=== PATIENT | male | born 1990 | race African-American/Black ===

== ENCOUNTER 2016-12-27 22:05 | Emergency (ER) | payer SELFPAY ==
[~2016-12-27] VITALS: Ht 175.3 cm; Wt 73.5 kg
[~2016-12-27 22:05] MED LIST: AUGMENTIN 875-1 EAC1 ORAL; AZITHROMYCIN250 MG ORAL; IBUPROFEN600 MG ORAL; LACTULOSE20 GM/301 ORAL; NKM; NORCO 5-325 TA1 EACH ORAL; ONDANSETRON ODT4 MG ORAL
[2016-12-27 22:23] VITALS: BP 123/80
[2016-12-27] MEDS ORDERED: IBUPROFEN600 MG ORAL (22:36)
[2016-12-27] MEDS ORDERED: AMOXICILLIN500 MG ORAL (22:36)
[2016-12-27 22:42] VITALS: BP 123/80
--- NOTE | 2016-12-27 22:48 | Emergency Room Report ---
History of Present Illness General Chief Complaint: Toothache Source: Patient Present Illness HPI Patient presents with complaints of left-sided dental pain Reports the pain started 2 days ago Patient reports putting Orajel on the area with minimal relief Denies any fevers denies any trismus He does report left-sided throat pain as well however Denies any rash Pain is reported as 7/10 Allergies: Coded Allergies: No Known Allergies (Unverified , 06/01/13) Patient History Past Medical History: see triage record Pertinent Family History: none Reviewed Nursing Documentation: PMH: Agreed, PSxH: Agreed Nursing Documentation-PMH Past Medical History: No Stated History Review of Systems All Other Systems: negative except mentioned in HPI Physical Exam Vital Signs Date Time Temp Pulse Resp B/P (MAP) Pulse Ox O2 Delivery O2 Flow Rate FiO2 12/27/16 22:13 97.9 59 16 123/80 99 Room Air Sp02 EP Interpretation: reviewed, normal General Appearance: well appearing, no apparent distress Head: normocephalic, atraumatic Eyes: bilateral eye PERRL, bilateral eye EOMI ENT: other - Poor dentition with what appears to be dental decay throughout there are some specific areas in the left molar region, Neck: supple, thyroid normal Respiratory: lungs clear Musculoskeletal: normal inspection Skin: normal color, no rash - no abscess Lymphatic: no adenopathy Medical Decision Making Diagnostic Impression: Primary Impression: dental decay ER Course Patient's oral exam reveals clear dental decay patient requiring oral antibiotic And dental followup And concern regarding the patient's request of pain medication, review of cures reveals recent opiate prescription the patient failed to provide us this information and concern regarding opiate seeking behavior , Last Vital Signs Date Time Temp Pulse Resp B/P (MAP) Pulse Ox O2 Delivery O2 Flow Rate FiO2 12/27/16 22:23 97.9 16 123/80 99 Room Air 12/27/16 22:13 59 Status: improved Disposition: HOME, SELF-CARE Condition: Improved Scripts Ibuprofen* (MOTRIN*) 600 Mg Tablet 600 MG ORAL Q8H Y for For Pain, #20 TAB 0 Refills Prov: LIDYA MCDANIEL.ORoly 12/27/16 Amoxicillin* (AMOXIL*) 500 Mg Capsule 500 MG ORAL THREE TIMES A DAY, #21 CAP Prov: LIDYA MCDANIEL.ORoly 12/27/16 Patient Instructions: Dental Pain, Dental Caries, [id number] Additional Instructions: Patient is provided with the discharge instructions notified to follow up with primary doctor in the next 2-3 days otherwise return to the er with any worsening symptoms. Please note that this report is being documented using DRAGON technology. This can lead to erroneous entry secondary to incorrect interpretation by the dictating instrument. LIDYA MCDANIEL D.O. Dec 27, 2016 22:48
== END 2016-12-27 22:45 | disposition home or self-care (01) ==
LOC: EMR 22:25
DX: K02.9 Dental caries, unspecified (principal)
CPT/HCPCS: 99284

== ENCOUNTER 2017-08-07 20:21 | Emergency (ER) | payer MEDICAID ==
[~2017-08-07] VITALS: Ht 175.3 cm; Wt 72.6 kg
[~2017-08-07 20:21] MED LIST changes: +AMOXICILLIN500 MG ORAL
[2017-08-07] MEDS ORDERED: AZITHROMYCIN250 MG ORAL (21:19)
[2017-08-07] MEDS ORDERED: IBUPROFEN600 MG ORAL (21:19)
--- NOTE | 2017-08-07 21:20 | Emergency Room Report ---
History of Present Illness General Chief Complaint: Sore Throat Source: Patient Present Illness HPI Is a 26-year-old male with no past medical history. He presents with chief complaint is sore throat. Onset yesterday. No nausea no vomiting. Subjective fever. Worse with swallowing and eating. Worse with coughing. Slight cough without production. Pain is 9 out of 10. No drooling. Allergies: Coded Allergies: No Known Allergies (Unverified , 06/01/13) Patient History Past Medical History: see triage record, old chart reviewed Past Surgical History: none Pertinent Family History: none Social History: Reports: smoking Immunizations: other Reviewed Nursing Documentation: PMH: Agreed; PSxH: Agreed Nursing Documentation-PMH Past Medical History: No Stated History Review of Systems Constitutional: Reports: weakness Eye: Denies: eye pain, blurred vision ENT: Reports: throat pain; Denies: ear pain, nose congestion, throat swelling Respiratory: Denies: cough, shortness of breath Cardiovascular: Denies: chest pain, palpitations Gastrointestinal: Denies: abdominal pain, diarrhea, nausea, vomiting Musculoskeletal: Denies: back pain, joint pain Skin: Denies: rash Neurological: Denies: headache, numbness Endocrine: Denies: increased thirst, increased urine Hematologic/Lymphatic: Denies: easy bruising All Other Systems: negative except mentioned in HPI Physical Exam Vital Signs Date Time Temp Pulse Resp B/P (MAP) Pulse Ox O2 Delivery O2 Flow Rate FiO2 08/07/17 20:32 98.1 54 16 110/55 96 Room Air 98.1 vitals normal Sp02 EP Interpretation: reviewed, normal General Appearance: well appearing, no apparent distress, alert Head: normocephalic, atraumatic Eyes: bilateral eye PERRL, bilateral eye EOMI ENT: hearing grossly normal, tonsillar swelling, pharyngeal erythema, other - no trismus Neck: full range of motion, supple, no meningismus Respiratory: chest non-tender, lungs clear, normal breath sounds Cardiovascular #1: regular rate, rhythm, no murmur Gastrointestinal: normal bowel sounds, non tender, no mass, no organomegaly, no bruit, non-distended Musculoskeletal: back normal, gait/station normal, normal range of motion Psychiatric: mood/affect normal Skin: warm/dry Medical Decision Making Diagnostic Impression: Primary Impression: Pharyngitis, acute Qualified Codes: J02.9 - Acute pharyngitis, unspecified ER Course Patient with a pharyngitis. No evidence of peritonsillar abscess, retropharyngeal abscess or Royal angina. We'll discharge home. Last Vital Signs Date Time Temp Pulse Resp B/P (MAP) Pulse Ox O2 Delivery O2 Flow Rate FiO2 08/07/17 20:32 98.1 54 16 110/55 96 Room Air 98.1 Status: unchanged Disposition: HOME, SELF-CARE Condition: Stable Scripts Azithromycin* (ZITHROMAX*) 250 Mg Tablet 250 MG ORAL DAILY, #6 TAB 0 Refills Take two tablets by mouth today, then take one tablet by mouth daily for four days Prov: MARCELLA NORTON M.D. 08/07/17 Ibuprofen* (MOTRIN*) 600 Mg Tablet 600 MG ORAL THREE TIMES A DAY, #30 TAB 0 Refills Prov: MARCELLA NORTON M.D. 08/07/17 Referrals: NOT CHOSEN [facility]/,REFERRING (PCP) Patient Instructions: Tonsillitis Additional Instructions: Increase fluids. Salt water gargle. Follow with your doctor in 7 days. Return if worse. MARCELLA NORTON M.D. Aug 07, 2017 21:20
[2017-08-07 21:30] VITALS: BP 110/55
== END 2017-08-07 21:34 | disposition home or self-care (01) ==
LOC: EMR 21:09
DX: J02.9 Acute pharyngitis, unspecified (principal)
CPT/HCPCS: 99284

== ENCOUNTER 2017-10-20 07:43 | Emergency (ER) | payer MEDICAID ==
[~2017-10-20] VITALS: Ht 175.3 cm; Wt 67.1 kg
[2017-10-20] MEDS ORDERED: NKM (07:51)
[2017-10-20] MEDS ORDERED: Ketorolac 30mg Inj IM ONE (08:15)
[2017-10-20] MEDS ORDERED: ACETAMINOPHEN-1 EAC1 ORAL (08:21)
[2017-10-20] MEDS ORDERED: AMOXICILLIN500 MG ORAL (08:21)
[2017-10-20 08:39] VITALS: BP 117/77
[2017-10-20 08:42] VITALS: BP 117/77
--- NOTE | 2017-10-20 10:16 | Emergency Room Report ---
History of Present Illness General Chief Complaint: Toothache Source: Patient Present Illness HPI 27-year-old male presents ED complaining of tooth pain. Notes pain to bilateral lower jaw. Started 3 days ago. States he thinks his wisdom teeth are coming in. Pain is throbbing, 9 out of 10, radiating through the jaw. Denies fevers or chills. Denies sore throat or cough. Denies any discharge. No other aggravating relieving factors. Denies any other associated symptoms Allergies: Coded Allergies: No Known Allergies (Unverified , 06/01/13) Patient History Past Medical History: none Past Surgical History: none Pertinent Family History: none Social History: Denies: smoking, alcohol use, drug use Immunizations: UTD Reviewed Nursing Documentation: PMH: Agreed; PSxH: Agreed Nursing Documentation-PMH Past Medical History: No Stated History Review of Systems All Other Systems: negative except mentioned in HPI Physical Exam Vital Signs Date Time Temp Pulse Resp B/P (MAP) Pulse Ox O2 Delivery O2 Flow Rate FiO2 10/20/17 07:46 97.7 54 16 117/77 95 Room Air 97.7 Sp02 EP Interpretation: reviewed, normal General Appearance: no apparent distress, alert, GCS 15, non-toxic Head: normocephalic Eyes: bilateral eye normal inspection, bilateral eye PERRL ENT: hearing grossly normal, normal pharynx, no angioedema, normal voice, TMs + canals normal, other - multiple dental caries. pain at site of wisdom teeth. no abscess Neck: full range of motion, no meningismus, no bony tend, supple/symm/no masses Respiratory: normal inspection Cardiovascular #1: normal peripheral pulses Gastrointestinal: normal inspection Rectal: deferred Genitourinary: no CVA tenderness Musculoskeletal: normal inspection Neurologic: alert, oriented x3, responsive, motor strength/tone normal, sensory intact, speech normal Psychiatric: normal inspection Skin: normal inspection Lymphatic: normal inspection Medical Decision Making Diagnostic Impression: Primary Impression: Tooth pain ER Course 27-year-old male presents ED complaining of tooth pain. Cracked tooth, dental abscess, cavity Patient placed on stretcher. After initial history, physical exam reveals a young male in mild distress. Multiple dental caries noted. However there does appear to be pain at site of wisdom tooth in bilateral lower jaw. No surrounding abscess. No induration or swelling. Given Toradol in ED. We will prescribe antibiotics and pain medications. Recommend patient see dentist soon Diagnosis- tooth pain Stable and discharged to home prescription for Tylenol #3 and amoxicillin. Instructed to see dentist as a walk-in this week. Return to ED if symptoms recur or worse Last Vital Signs Date Time Temp Pulse Resp B/P (MAP) Pulse Ox O2 Delivery O2 Flow Rate FiO2 10/20/17 08:42 97.7 72 16 117/77 95 Room Air 97.7 Status: improved Disposition: HOME, SELF-CARE Condition: Stable Scripts Acetaminophen With Codeine (T#3) (TYLENOL #3 TAB*) Y Tab 1 TAB ORAL Q8H PRN for For Pain, #20 TAB Prov: Ray Gonzalez MD 10/20/17 Amoxicillin* (AMOXIL*) 500 Mg Capsule 500 MG ORAL THREE TIMES A DAY, #21 CAP Prov: Ray Gonzalez MD 10/20/17 Patient Instructions: Pericoronitis Ray Gonzalez MD Oct 20, 2017 10:16
== END 2017-10-20 08:43 | disposition home or self-care (01) ==
LOC: EMR 08:19
DX: K08.89 Other specified disorders of teeth and supporting structures (principal); R68.84 Jaw pain
CPT/HCPCS: 96372; 99284; J1885

== ENCOUNTER 2017-11-19 15:36 | Emergency (ER) | payer MEDICAID ==
[~2017-11-19] VITALS: Ht 177.8 cm; Wt 68.0 kg
[~2017-11-19 15:36] MED LIST changes: +ACETAMINOPHEN-1 EAC1 ORAL
[2017-11-19 16:00] VITALS: BP 131/82
[2017-11-19] MEDS ORDERED: Ketorolac 60mg Inj IM ONE (16:30)
[2017-11-19] MEDS ORDERED: Lidocaine 2% Visc 15ml soln ORAL ONE (16:30)
--- NOTE | 2017-11-19 16:30 | Emergency Room Report ---
History of Present Illness General Chief Complaint: Toothache Source: Patient Present Illness HPI 27-year-old male presents to the emergency department complaining of 8/10 in severity left lower wisdom tooth pain 2 days. Patient reports that he has a cracked tooth and he needs to get it pulled by a dentist. Patient states that since his last visit 20 days ago he was evaluated by a dentist however they did not schedule his tooth to be pulled. He states his pain started yesterday and she was just on his way to the dentist for pain when his mother told him he should go to the ER instead. Denies fevers or chills reports moderate tenderness at the gumline. Denies swelling of the lips or tongue or sore throat. Allergies: Coded Allergies: No Known Allergies (Unverified , 06/01/13) Patient History Past Medical History: see triage record Past Surgical History: none Pertinent Family History: none Reviewed Nursing Documentation: PMH: Agreed; PSxH: Agreed Nursing Documentation-PMH Past Medical History: No Stated History Review of Systems All Other Systems: negative except mentioned in HPI Physical Exam Vital Signs Date Time Temp Pulse Resp B/P (MAP) Pulse Ox O2 Delivery O2 Flow Rate FiO2 11/19/17 15:57 98.0 64 18 131/82 98 Room Air 98.1 Sp02 EP Interpretation: reviewed, normal General Appearance: no apparent distress, alert, GCS 15, non-toxic Head: normocephalic, atraumatic Eyes: bilateral eye normal inspection, bilateral eye PERRL ENT: hearing grossly normal, normal voice, other - the left wisdom tooth. tooth is cracked ttp to gumline as well no palpable fluctuance. Neck: full range of motion Respiratory: lungs clear, speaking full sentences Cardiovascular #1: regular rate, rhythm Musculoskeletal: back normal, gait/station normal, normal range of motion, non- tender Neurologic: alert, oriented x3, responsive, motor strength/tone normal, sensory intact, speech normal, grossly normal Psychiatric: judgement/insight normal Skin: normal color, no rash, warm/dry, well hydrated Lymphatic: no adenopathy Medical Decision Making Diagnostic Impression: Primary Impression: Acute pericoronitis ER Course 27-year-old male presents to the emergency department complaining of 8/10 in severity left lower wisdom tooth pain 2 days. Patient reports that he has a cracked tooth and he needs to get it pulled by a dentist. Patient states that since his last visit 20 days ago he was evaluated by a dentist however they did not schedule his tooth to be pulled. He states his pain started yesterday and she was just on his way to the dentist for pain when his mother told him he should go to the ER instead. Denies fevers or chills reports moderate tenderness at the gumline. Denies swelling of the lips or tongue or sore throat. Ddx considered but are not limited to cellulitis, dental abscess, orbital cellulitis, d/l tooth, dental pain. trigeminal neuralgia Vital signs: are WNL, pt. is afebrile H&PE are most consistent with acute pericoronitis of the left wisdom tooth. tooth is cracked ttp to gumline as well no palpable fluctuance. ORDERS: none required at this time, the diagnosis is clinical ED INTERVENTIONS: -Toradol IM DISCHARGE: At this time pt. is stable for d/c to home. Will provide printed patient care instructions, and any necessary prescriptions. Care plan and follow up instructions have been discussed with the patient prior to discharge. Last Vital Signs Date Time Temp Pulse Resp B/P (MAP) Pulse Ox O2 Delivery O2 Flow Rate FiO2 11/19/17 15:57 98.0 64 18 131/82 98 Room Air 98.1 Disposition: HOME, SELF-CARE Condition: Stable Scripts Ibuprofen* (MOTRIN*) 600 Mg Tablet 600 MG ORAL THREE TIMES A DAY, #30 TAB 0 Refills Prov: Dayna Rodríguez 11/19/17 Amoxicillin* (AMOXIL*) 500 Mg Capsule 500 MG ORAL BID for 7 Days, #14 CAP Prov: Dayna Rodríguez 11/19/17 Lidocaine HCl 2% Viscous (Lidocaine HCl 2% Viscous) 100 Ml Solution 5 ML MM QID, #100 ML Prov: Dayna Rodríguez 11/19/17 Referrals: NOT CHOSEN [facility]/MD,REFERRING (PCP) Patient Instructions: Dental Pain Additional Instructions: Take medications as directed. Follow up with a DENTIST within 3-5 days, even if your symptoms have resolved. --Please review list of primary care clinics, if you do not already have a primary care provider - Please note that this Emergency Department Report was dictated using [employer] transcriptionist technology software, occasionally this can lead to erroneous entry secondary to interpretation by the dictation equipment. Dayna Rodríguez Nov 19, 2017 16:30
[2017-11-19] MEDS ORDERED: LIDOCAINE VISC100 ML MM (16:31)
[2017-11-19] MEDS ORDERED: AMOXICILLIN500 MG ORAL (16:31)
[2017-11-19] MEDS ORDERED: IBUPROFEN600 MG ORAL (16:31)
[2017-11-19 17:15] VITALS: BP 130/80
== END 2017-11-19 17:15 | disposition home or self-care (01) ==
LOC: EMR 16:10
DX: K05.20 Aggressive periodontitis, unspecified (principal)
CPT/HCPCS: 99283

== ENCOUNTER 2018-04-01 08:48 | Emergency (ER) | payer SELFPAY ==
[~2018-04-01] VITALS: Ht 177.8 cm; Wt 70.3 kg
[~2018-04-01 08:48] MED LIST changes: +LIDOCAINE VISC100 ML MM
[2018-04-01] MEDS ORDERED: TYLENOL EXTRA500 MG ORAL (09:24)
[2018-04-01] MEDS ORDERED: CEPHALEXIN500 MG ORAL (09:24)
[2018-04-01] MEDS ORDERED: PREDNISONE20 MG ORAL (09:24)
[2018-04-01 09:30] VITALS: BP 125/70
[2018-04-01] MEDS ORDERED: Acetaminophen 500mg (ES) tab ORAL ONE (09:30)
--- NOTE | 2018-04-01 10:33 | Emergency Room Report ---
History of Present Illness General Chief Complaint: Lower Extremity Injury Source: Patient Present Illness HPI 27-year-old male presents ED complaining of right big toe pain and swelling. Patient states that there was no injury. Notes increasing pain and redness to the base of the big toe. Throbbing, 8 out of 10, nonradiating. Started about one week ago. Denies fevers chills. No other aggravating relieving factors. Denies any other associated symptoms Allergies: Coded Allergies: No Known Allergies (Unverified , 06/01/13) Patient History Past Medical History: none Past Surgical History: none Pertinent Family History: none Social History: Denies: smoking, alcohol use, drug use Immunizations: UTD Reviewed Nursing Documentation: PMH: Agreed; PSxH: Agreed Nursing Documentation-PMH Past Medical History: No Stated History Review of Systems All Other Systems: negative except mentioned in HPI Physical Exam Vital Signs Date Time Temp Pulse Resp B/P (MAP) Pulse Ox O2 Delivery O2 Flow Rate FiO2 04/01/18 08:52 98.1 80 17 127/69 99 Room Air Sp02 EP Interpretation: reviewed, normal General Appearance: no apparent distress, alert, GCS 15, non-toxic Head: normocephalic Eyes: bilateral eye normal inspection, bilateral eye PERRL ENT: normal ENT inspection Neck: normal inspection Respiratory: normal inspection Cardiovascular #1: normal inspection Gastrointestinal: normal inspection Rectal: deferred Genitourinary: no CVA tenderness Musculoskeletal: swelling - R big toe, tender Neurologic: alert, oriented x3, responsive, motor strength/tone normal, sensory intact, speech normal Psychiatric: normal inspection Skin: normal inspection Lymphatic: normal inspection Medical Decision Making Diagnostic Impression: Primary Impression: Great toe pain Qualified Codes: M79.674 - Pain in right toe(s) ER Course Hospital Course 27-year-old M presents ED with R big toe pain and swelling. Differential diagnoses include: Fracture, dislocation, sprain, contusion, bursitis, septic joint Clinical course Patient placed on stretcher. After initial history, physical exam reveals a male in no acute distress. There is swelling and erythema to the R toe. No fluctuance. Patient appears well and nontoxic. Am not suspicious of septic joint. Consideration for cellulitis versus gout. Patient is young however he documents that his father had gout. We will treat for both. Recommend all with orthopedics as outpatient given pain meds, prednisone in ED Diagnosis - great toe pain Stable and discharged to home with prescription for prednisone, tylenol, keflex. Followup with PMD/ortho. Return to ED if symptoms recur or worsen Last Vital Signs Date Time Temp Pulse Resp B/P (MAP) Pulse Ox O2 Delivery O2 Flow Rate FiO2 04/01/18 09:30 98.3 76 16 125/70 99 Room Air Status: improved Disposition: HOME, SELF-CARE Condition: Stable Scripts Cephalexin* (KEFLEX*) 500 Mg Capsule 500 MG ORAL EVERY 6 HOURS for 7 Days, CAP Prov: Ray Gonzalez MD 04/01/18 Prednisone* (PREDNISONE*) 20 Mg Tablet 40 MG ORAL DAILY, #10 TAB Prov: Ray Gonzalez MD 04/01/18 Acetaminophen* (TYLENOL EXTRA STRENGTH*) 500 Mg Tablet 500 MG ORAL Q6H PRN for Mild Pain/Temp > 100.5, #30 TAB 0 Refills Prov: Ray Gonzalez MD 04/01/18 Referrals: NOT CHOSEN [facility]/,REFERRING (PCP) Departure Forms: Return to Work Return to Work Date: Apr 03, 2018 Work Restrictions: No Prolonged Standing Patient Instructions: Gout, [id number], Cellulitis, [id number] Ray Gonzalez MD Apr 01, 2018 10:33
== END 2018-04-01 09:33 | disposition home or self-care (01) ==
LOC: EMR 09:25
DX: M79.674 Pain in right toe(s) (principal)
CPT/HCPCS: 99283; J7512

== ENCOUNTER 2018-09-24 02:35 | Emergency (ER) | payer MEDICAID ==
[~2018-09-24] VITALS: Ht 170.2 cm; Wt 72.6 kg
[~2018-09-24 02:35] MED LIST changes: +CEPHALEXIN500 MG ORAL; +PREDNISONE20 MG ORAL; +TYLENOL EXTRA500 MG ORAL
--- NOTE | 2018-09-24 02:39 | NUR ---
ED Nurse Note: unable to traige, patient not in waiting room, called 2 times
--- NOTE | 2018-09-24 02:43 | NUR ---
Not in WR.
[2018-09-24 03:00] VITALS: BP 111/71
--- NOTE | 2018-09-24 03:00 | NUR ---
ED Nurse Note: Abelardo walked into ED c/o cough for a week accompanied by a sore throat. patient rates his pain a 9/10. patient is alert and oriented x4, ambulatory with a steady gait, VSS
[2018-09-24] MEDS ORDERED: AMOXICILLIN500 MG ORAL (03:08)
[2018-09-24] MEDS ORDERED: IBUPROFEN600 MG ORAL (03:08)
[2018-09-24 03:21] VITALS: BP 120/72
--- NOTE | 2018-09-24 03:21 | NUR ---
ER DISCHARGE NOTE: Patient is cleared to be discharged per ERMD, pt is aox4, on room air, with stable vital signs. pt was given dc and prescription instructions, pt was able to verbalize understanding, pt id band removed without complications. pt is able to ambulate with steady gait. pt took all belongings.
--- NOTE | 2018-09-24 04:47 | Emergency Room Report ---
History of Present Illness General Chief Complaint: Upper Respiratory Illness Source: Patient Present Illness HPI Patient is a 27-year-old male who presented after increased sore throat and productive cough. Patient reports having a cough with yellow-green sputum. Reports having gradual onset of symptoms of the past 5 days. He reports being a smoker. He states he smokes marijuana regularly. He does not smoke cigarettes. Patient denies any vomiting or abdominal pain. He reports having some generalized body aches. He denies any prior medical history other than asthma. Allergies: Coded Allergies: No Known Allergies (Unverified , 06/01/13) Patient History Past Medical History: see triage record Reviewed Nursing Documentation: PMH: Agreed; PSxH: Agreed Nursing Documentation-PMH Past Medical History: No Stated History Review of Systems All Other Systems: negative except mentioned in HPI Physical Exam Vital Signs Date Time Temp Pulse Resp B/P (MAP) Pulse Ox O2 Delivery O2 Flow Rate FiO2 09/24/18 02:47 98.2 74 18 111/71 (84) 95 Room Air General Appearance: well appearing, no apparent distress, alert, GCS 15 Head: normocephalic, atraumatic ENT: hearing grossly normal, normal voice, pharyngeal erythema Neck: full range of motion, supple Respiratory: chest non-tender, lungs clear, normal breath sounds, no respiratory distress, speaking full sentences Cardiovascular #1: normal inspection, no edema Gastrointestinal: normal inspection Musculoskeletal: normal inspection, back normal, digits/nails normal Neurologic: normal inspection, alert, oriented x3, normal gait Psychiatric: normal inspection, mood/affect normal Skin: no rash Medical Decision Making Diagnostic Impression: Primary Impression: Pharyngitis ER Course Patient presented for sore throat. Differential diagnosis include was not limited to pneumonia, bronchitis, sinusitis among others. Patient has a benign exam and does not appear to require any further imaging or laboratory testing at this time patient's symptoms are consistent with a. Pharyngitis. Patient appears to have some evidence of bacterial infection and pneumonitis. Patient will be given a prescription for amoxicillin. He is advised to follow-up with his primary care physician for recheck. Patient was to return if any worsening of condition or other concerns. Last Vital Signs Date Time Temp Pulse Resp B/P (MAP) Pulse Ox O2 Delivery O2 Flow Rate FiO2 09/24/18 03:21 98.2 09/24/18 03:21 72 18 120/72 95 Room Air Status: improved Disposition: HOME, SELF-CARE Condition: Stable Scripts Ibuprofen* (MOTRIN*) 600 Mg Tablet 600 MG ORAL Q8H PRN for For Pain, #30 TAB 0 Refills Prov: Joseph Weeks MD 09/24/18 Amoxicillin* (AMOXIL*) 500 Mg Capsule 500 MG ORAL THREE TIMES A DAY, #21 CAP Prov: Joseph Weeks MD 09/24/18 Referrals: NOT CHOSEN [facility]/MD,REFERRING (PCP) Patient Instructions: Pharyngitis Joseph Weeks MD Sep 24, 2018 04:47
== END 2018-09-24 03:22 | disposition home or self-care (01) ==
LOC: EMR 03:10
DX: J02.9 Acute pharyngitis, unspecified (principal); F17.200 Nicotine dependence, unspecified, uncomplicated; F12.90 Cannabis use, unspecified, uncomplicated
CPT/HCPCS: 99282